=== PATIENT | male | born 1955 | race Caucasian/White ===

== ENCOUNTER 2020-06-06 21:55 | Inpatient (IN) | payer OTHER, MEDICARE ==
[2020-06-06 22:05] VITALS: BMI 31.0
[2020-06-06] MEDS ORDERED: FOLIC ACID INJECTION - 1 MG, THIAMINE HCL 100 MG, MULTIVIT INJECTION ADULT 10 ML in SOD... IVPB ONE (22:33)
[2020-06-06] MEDS ORDERED: ALBUTEROL SO4 HFA INHALER IH ONE ×2 (22:56→23:01)
[2020-06-06] MEDS ORDERED: DEXAMETHASONE SOD PHOSPHATE 10 MG/1 ML VIAL IVPUSH ONE (23:01)
[2020-06-06] MEDS ORDERED: LORazepam 2 MG/ML SDV VIAL ONE (23:02)
[2020-06-06] MEDS ORDERED: DEXAMETHASONE SOD PHOSPHATE 10 MG/1 ML VIAL ONE (23:10)
[2020-06-07] MEDS ORDERED: LACTATED RINGERS SOLUTION 1000 ML INFUS.BAG IV ONE ×2 (00:52→22:34)
[2020-06-07] MEDS ORDERED: LORazepam 2 MG/ML SDV VIAL ONE ×2 (01:34→04:37)
[2020-06-07] MEDS ORDERED: diazePAM CARPU-JECT 10 MG/2 ML DISP.SYRIN IVPUSH ONE (05:11)
[2020-06-07] MEDS ORDERED: diazePAM CARPU-JECT 10 MG/2 ML DISP.SYRIN ONE (05:28)
[2020-06-07 05:42] LABS: PH,URINE 5.5 (5.0-8.0); URINE APPEARANCE CLEAR; URINE BILIRUBIN NEGATIVE (NEGATIVE); URINE COLOR YELLOW; URINE GLUCOSE (UA) NEGATIVE (NEGATIVE); URINE KETONE NEGATIVE (NEGATIVE); URINE LEUK ESTERASE NEGATIVE (NEGATIVE); URINE NITRITE NEGATIVE (NEGATIVE); URINE PROTEIN NEGATIVE (NEGATIVE)
[2020-06-07] MEDS ORDERED: LORazepam 1 MG TABLET PO PRN (05:58)
[2020-06-07] MEDS: LORazepam 2 MG TABLET PO SCH ×5 (06:15→23:03)
[2020-06-07] MEDS ORDERED: ALBUTEROL SO4 2.5/IPRATROPIUM 0.5 INH SOL 3 ML VIAL.NEB. NEB PRN (07:00)
[2020-06-07] MEDS: SODIUM CHLORIDE 1,000 ML IV SCH ×2 (08:16→23:07)
[2020-06-07] MEDS ORDERED: predniSONE 20 MG TABLET (UD) ONE (09:50)
[2020-06-07] MEDS ORDERED: MULTIVITAMINS (DAILY MVI) TABLET (FP) ONE ×2 (09:50→10:44)
[2020-06-07] MEDS ORDERED: FOLIC ACID 1 MG TABLET (FP) ONE ×2 (09:51→10:45)
[2020-06-07] MEDS ORDERED: THIAMINE HCL 100 MG TABLET (FP) ONE ×2 (09:51→10:45)
[2020-06-07] MEDS ORDERED: ENOXAPARIN NA (PORCINE) 40 MG/0.4 ML DISP.SYRIN SQ ONE ×2 (09:51→10:45)
[2020-06-07] MEDS ORDERED: PANTOPRAZOLE 40 MG TABLET ONE (09:51)
[2020-06-07] MEDS: MULTIVITAMINS (DAILY MVI) TABLET (FP) PO SCH (10:11)
[2020-06-07] MEDS: PANTOPRAZOLE 40 MG TABLET PO SCH (10:11)
[2020-06-07] MEDS: predniSONE 20 MG TABLET (UD) PO SCH (10:11)
[2020-06-07] MEDS: ENOXAPARIN NA (PORCINE) 40 MG/0.4 ML DISP.SYRIN SQ SCH (10:11)
[2020-06-07] MEDS: FOLIC ACID 1 MG TABLET (FP) PO SCH (10:11)
[2020-06-07] MEDS: THIAMINE HCL 100 MG TABLET (FP) PO SCH (10:12)
[2020-06-07 10:27] LABS: BASO % 0.3 % (0-2.0); HEMATOCRIT 35.7 % (35.4-49); HEMOGLOBIN 12.2 GM/dL (11.7-16.9); LYMPH % 9.2 % (8-40); MCH 35.8 pg (25.7-33.7); MEAN CELL VOLUME 105.1 fl (80-96); MONO % 2.6 % (3.8-10.2); NEUT % 87.9 % (42.8-82.8); PLATELET COUNT 158 K/MM3 (134-434); RDW 12.4 % (11.9-15.9); WHITE BLOOD COUNT 3.5 K/mm3 (4.0-10.0)
[2020-06-07 10:34] LABS: INR 0.94 (0.83-1.09); PROTHROMBIN TIME (PATIENT) 11.4 SEC (9.7-13.0)
[2020-06-07] MEDS ORDERED: PANTOPRAZOLE 20 MG TABLET PO ONE (10:45)
[2020-06-07 10:48] LABS: POTASSIUM 3.7 mmol/L (3.5-5.1)
[2020-06-07 10:54] LABS: ALBUMIN 2.9 g/dl (3.4-5.0); BLOOD UREA NITROGEN 5.5 mg/dL (7-18); CALCIUM 8.2 mg/dL (8.5-10.1); MAGNESIUM 1.7 mg/dL (1.8-2.4)
[2020-06-07 10:57] LABS: CREATININE 0.4 mg/dL (0.55-1.3); PHOSPHOROUS 3.4 mg/dL (2.5-4.9)
[2020-06-07 10:58] LABS: TOT PROT 5.8 g/dl (6.4-8.2)
[2020-06-07] MEDS ORDERED: LORazepam 1 MG TABLET ONE ×3 (11:09→17:50)
[2020-06-07 12:19] LABS: ANISOCYTOSIS 0; MACROCYTOSIS 2+; PLATELET ESTIMATE DECREASED
[2020-06-07] MEDS ORDERED: MAGNESIUM OXIDE 400 MG TABLET (FP) PO ONE (12:45)
[2020-06-07] MEDS ORDERED: MAGNESIUM OXIDE 400 MG TABLET (FP) ONE (13:09)
[2020-06-07] MEDS ORDERED: LORazepam 1 MG TABLET PO SCH (22:33)
[2020-06-08] MEDS: LORazepam 1 MG TABLET PO SCH ×2 (06:00→11:40)
[2020-06-08 07:23] LABS: BASO % 0.2 % (0-2.0); EOS % 0.1 % (0-4.5); HEMATOCRIT 34.2 % (35.4-49); HEMOGLOBIN 11.4 GM/dL (11.7-16.9); LYMPH % 18.5 % (8-40); MCH 35.2 pg (25.7-33.7); MCHC 33.4 g/dl (32.0-35.9); MEAN CELL VOLUME 105.1 fl (80-96); MEAN PLT VOLUME 9.1 fl (7.5-11.1); MONO % 10.4 % (3.8-10.2); NEUT % 70.8 % (42.8-82.8); PLATELET COUNT 170 K/MM3 (134-434); RBC 3.25 M/mm3 (4.00-5.60); RDW 12.5 % (11.9-15.9); WHITE BLOOD COUNT 5.7 K/mm3 (4.0-10.0)
[2020-06-08 07:40] LABS: POTASSIUM 3.5 mmol/L (3.5-5.1)
[2020-06-08 07:45] LABS: CALCIUM 8.3 mg/dL (8.5-10.1)
[2020-06-08 07:47] LABS: ALBUMIN 2.7 g/dl (3.4-5.0); BLOOD UREA NITROGEN 9.9 mg/dL (7-18)
[2020-06-08 07:50] LABS: CREATININE 0.4 mg/dL (0.55-1.3)
[2020-06-08 07:52] LABS: BILIRUBIN,TOTAL 0.8 mg/dL (0.2-1); TOT PROT 5.4 g/dl (6.4-8.2)
[2020-06-08] MEDS: SODIUM CHLORIDE 1,000 ML IV SCH ×2 (09:12→17:18)
[2020-06-08] MEDS: predniSONE 20 MG TABLET (UD) PO SCH (09:12)
[2020-06-08] MEDS: PANTOPRAZOLE 40 MG TABLET PO SCH (09:13)
[2020-06-08] MEDS: FOLIC ACID 1 MG TABLET (FP) PO SCH (09:13)
[2020-06-08] MEDS: MULTIVITAMINS (DAILY MVI) TABLET (FP) PO SCH (09:13)
[2020-06-08] MEDS: THIAMINE HCL 100 MG TABLET (FP) PO SCH (09:13)
[2020-06-08] MEDS: ENOXAPARIN NA (PORCINE) 40 MG/0.4 ML DISP.SYRIN SQ SCH (09:13)
[2020-06-08] MEDS ORDERED: chlordiazePOXIDE HCL 25 MG CAPSULE PO ONE (12:34)
[2020-06-08] MEDS ORDERED: chlordiazePOXIDE HCL 25 MG CAPSULE PO PRN (12:34)
[2020-06-08] MEDS ORDERED: IPRATROPIUM BR 0.02% 0.5 MG/2.5 ML VIAL.NEB. NEB PRN (12:38)
[2020-06-08] MEDS: chlordiazePOXIDE HCL 25 MG CAPSULE PO PRN (21:27)
[2020-06-09] MEDS ORDERED: LORazepam 0.5 MG TABLET PO PRN
[2020-06-09] MEDS ORDERED: LORazepam 0.5 MG TABLET PO SCH (05:00)
[2020-06-09] MEDS: MULTIVITAMINS (DAILY MVI) TABLET (FP) PO SCH (10:18)
[2020-06-09] MEDS: PANTOPRAZOLE 40 MG TABLET PO SCH (10:18)
[2020-06-09] MEDS: FOLIC ACID 1 MG TABLET (FP) PO SCH (10:18)
[2020-06-09] MEDS: THIAMINE HCL 100 MG TABLET (FP) PO SCH (10:18)
[2020-06-09] MEDS: predniSONE 20 MG TABLET (UD) PO SCH (10:18)
[2020-06-09] MEDS: SODIUM CHLORIDE 1,000 ML IV SCH ×2 (10:19→10:24)
[2020-06-09] MEDS: ENOXAPARIN NA (PORCINE) 40 MG/0.4 ML DISP.SYRIN SQ SCH (10:19)
[2020-06-09 11:00] LABS: BASO % 0.5 % (0-2.0); EOS % 0.1 % (0-4.5); HEMATOCRIT 39.6 % (35.4-49); MCH 34.6 pg (25.7-33.7); MCHC 32.9 g/dl (32.0-35.9); MEAN CELL VOLUME 105.4 fl (80-96); MEAN PLT VOLUME 8.7 fl (7.5-11.1); MONO % 10.2 % (3.8-10.2); NEUT % 68.2 % (42.8-82.8); PLATELET COUNT 197 K/MM3 (134-434); RBC 3.75 M/mm3 (4.00-5.60); RDW 12.6 % (11.9-15.9); WHITE BLOOD COUNT 8.2 K/mm3 (4.0-10.0)
[2020-06-09] MEDS ORDERED: ALBUTEROL SO4 0.083% IH SOL 2.5 MG/3 ML VIAL.NEB. NEB PRN (11:20)
[2020-06-09 11:25] LABS: BLOOD UREA NITROGEN 8.3 mg/dL (7-18)
[2020-06-09 11:29] LABS: BILIRUBIN,TOTAL 0.8 mg/dL (0.2-1); TOT PROT 6.2 g/dl (6.4-8.2)
[2020-06-09 11:36] LABS: CALCIUM 8.9 mg/dL (8.5-10.1); CREATININE 0.5 mg/dL (0.55-1.3)
[2020-06-09] MEDS: TIOTROPIUM BROMIDE 2.5 MCG (SPIRIVA) RESPIMAT INHALER IH SCH (12:31)
[2020-06-09] MEDS ORDERED: PT OWN MED DRAWER 7, Y5N ONE (12:31)
[2020-06-09] MEDS: BUDESONIDE/FORMETEROL FUMARATE 160/4.5 mcg INHALER IH SCH ×2 (12:31→21:21)
[2020-06-09] MEDS: methylPREDNISolone NA SUCC 40 MG/1 ML VIAL IVPUSH SCH ×2 (12:31→17:04)
[2020-06-09] MEDS: IPRATROPIUM BR 0.02% 0.5 MG/2.5 ML VIAL.NEB. NEB SCH ×3 (13:25→20:44)
[2020-06-09] MEDS: chlordiazePOXIDE HCL 25 MG CAPSULE PO PRN ×2 (15:44→22:31)
[2020-06-10] MEDS: methylPREDNISolone NA SUCC 40 MG/1 ML VIAL IVPUSH SCH ×3 (01:36→17:10)
[2020-06-10] MEDS ORDERED: LORazepam 0.5 MG TABLET PO ONE (05:00)
[2020-06-10 07:24] LABS: POTASSIUM 3.8 mmol/L (3.5-5.1)
[2020-06-10 07:28] LABS: ALBUMIN 2.9 g/dl (3.4-5.0); BLOOD UREA NITROGEN 11.8 mg/dL (7-18); CALCIUM 8.9 mg/dL (8.5-10.1)
[2020-06-10 07:29] LABS: MAGNESIUM 1.9 mg/dL (1.8-2.4)
[2020-06-10 07:31] LABS: CREATININE 0.5 mg/dL (0.55-1.3); PHOSPHOROUS 3.6 mg/dL (2.5-4.9)
[2020-06-10 07:33] LABS: BILIRUBIN,TOTAL 0.8 mg/dL (0.2-1); TOT PROT 5.9 g/dl (6.4-8.2)
[2020-06-10 07:44] LABS: BASO % 0.1 % (0-2.0); HEMATOCRIT 36.5 % (35.4-49); HEMOGLOBIN 12.2 GM/dL (11.7-16.9); LYMPH % 6.8 % (8-40); MCHC 33.4 g/dl (32.0-35.9); MEAN CELL VOLUME 104.7 fl (80-96); MEAN PLT VOLUME 9.1 fl (7.5-11.1); MONO % 5.2 % (3.8-10.2); NEUT % 87.9 % (42.8-82.8); PLATELET COUNT 187 K/MM3 (134-434); RBC 3.49 M/mm3 (4.00-5.60); RDW 12.8 % (11.9-15.9); WHITE BLOOD COUNT 7.5 K/mm3 (4.0-10.0)
[2020-06-10] MEDS: SODIUM CHLORIDE 1,000 ML IV SCH (08:00)
[2020-06-10] MEDS: IPRATROPIUM BR 0.02% 0.5 MG/2.5 ML VIAL.NEB. NEB SCH ×4 (08:07→20:35)
[2020-06-10] MEDS: ENOXAPARIN NA (PORCINE) 40 MG/0.4 ML DISP.SYRIN SQ SCH (09:25)
[2020-06-10] MEDS: THIAMINE HCL 100 MG TABLET (FP) PO SCH (09:26)
[2020-06-10] MEDS: PANTOPRAZOLE 40 MG TABLET PO SCH (09:26)
[2020-06-10] MEDS: FOLIC ACID 1 MG TABLET (FP) PO SCH (09:27)
[2020-06-10] MEDS: BUDESONIDE/FORMETEROL FUMARATE 160/4.5 mcg INHALER IH SCH ×2 (09:27→21:22)
[2020-06-10] MEDS: chlordiazePOXIDE HCL 25 MG CAPSULE PO PRN ×2 (09:27→21:21)
[2020-06-10] MEDS: MULTIVITAMINS (DAILY MVI) TABLET (FP) PO SCH (09:27)
[2020-06-10] MEDS: TIOTROPIUM BROMIDE 2.5 MCG (SPIRIVA) RESPIMAT INHALER IH SCH (09:27)
[2020-06-11] MEDS: methylPREDNISolone NA SUCC 40 MG/1 ML VIAL IVPUSH SCH (00:59)
[2020-06-11] MEDS ORDERED: chlordiazePOXIDE HCL 10 MG CAPSULE PO PRN ×2 (05:00)
[2020-06-11 06:24] VITALS: TEMP 97.8
[2020-06-11] MEDS: IPRATROPIUM BR 0.02% 0.5 MG/2.5 ML VIAL.NEB. NEB SCH ×2 (07:40→11:41)
[2020-06-11 08:06] VITALS: BP 117/68
[2020-06-11 08:57] LABS: POTASSIUM 3.6 mmol/L (3.5-5.1)
[2020-06-11 09:05] LABS: ALBUMIN 2.8 g/dl (3.4-5.0); BLOOD UREA NITROGEN 15.6 mg/dL (7-18)
[2020-06-11 09:08] LABS: CREATININE 0.5 mg/dL (0.55-1.3); MAGNESIUM 2.1 mg/dL (1.8-2.4); PHOSPHOROUS 3.2 mg/dL (2.5-4.9)
[2020-06-11 09:10] LABS: BILIRUBIN,TOTAL 0.6 mg/dL (0.2-1); TOT PROT 5.9 g/dl (6.4-8.2)
[2020-06-11] MEDS: ENOXAPARIN NA (PORCINE) 40 MG/0.4 ML DISP.SYRIN SQ SCH (09:16)
[2020-06-11] MEDS: PANTOPRAZOLE 40 MG TABLET PO SCH (09:17)
[2020-06-11] MEDS: FOLIC ACID 1 MG TABLET (FP) PO SCH (09:17)
[2020-06-11] MEDS: MULTIVITAMINS (DAILY MVI) TABLET (FP) PO SCH (09:17)
[2020-06-11] MEDS: THIAMINE HCL 100 MG TABLET (FP) PO SCH (09:17)
[2020-06-11] MEDS: TIOTROPIUM BROMIDE 2.5 MCG (SPIRIVA) RESPIMAT INHALER IH SCH (09:18)
[2020-06-11] MEDS: BUDESONIDE/FORMETEROL FUMARATE 160/4.5 mcg INHALER IH SCH (09:18)
[2020-06-11] MEDS: SODIUM CHLORIDE 1,000 ML IV SCH (09:18)
[2020-06-11] MEDS ORDERED: methylPREDNISolone NA SUCC 40 MG/1 ML VIAL IVPUSH SCH (10:00)
[2020-06-11 11:41] VITALS: PULSE 90
[2020-06-12] MEDS ORDERED: chlordiazePOXIDE HCL 10 MG CAPSULE PO PRN (05:00)
[2020-06-13] MEDS ORDERED: chlordiazePOXIDE HCL 10 MG CAPSULE PO ONE (05:00)
== END 2020-06-11 18:30 | disposition home or self-care (01) | DRG 564 ==
LOC: JER 21:55 → UNDOADMIN 06-07 03:45 → JERBED 06-07 03:45 → J4W 06-07 21:06
PROVIDERS: ADMIT Hospitalist; ATTEND Internal Medicine
PROC: HZ2ZZZZ Detoxification Services for Substance Abuse Treatment (ICD-10-PCS; principal; 2020-06-06)
DX: T79.6XXA Traumatic ischemia of muscle, initial encounter (principal); J96.01 Acute respiratory failure with hypoxia; J44.1 Chronic obstructive pulmonary disease with (acute) exacerbation; F10.230 Alcohol dependence with withdrawal, uncomplicated; E87.6 Hypokalemia; E83.42 Hypomagnesemia; M79.10 Myalgia, unspecified site; F17.210 Nicotine dependence, cigarettes, uncomplicated; K70.10 Alcoholic hepatitis without ascites; I10 Essential (primary) hypertension; R00.0 Tachycardia, unspecified; R41.82 Altered mental status, unspecified; W18.39XA Other fall on same level, initial encounter; Y92.89 Other specified places as the place of occurrence of the external cause
CPT/HCPCS: 36415; 71045-TC-FY; 80053; 80074; 81003; 82550; 82553; 83735; 84100; 84443; 84484; 85025; 85027; 85610; 86780; 87389; 93005; 93010; 94640; 94761; 97116-GP; 97161-GP; 99285-25; C9803; J1100; U0003